=== PATIENT | female | born 1995 | race Hispanic/Latino ===

== ENCOUNTER 2025-03-01 13:52 | Emergency (ER) | payer OTHER, SELFPAY ==
[2025-03-01] MEDS ORDERED: Ibuprofen 800 MG TAB ONE (15:48)
== END 2025-03-01 16:00 | disposition home or self-care (01) ==
LOC: CSHERS 13:52
DX: M25.561 Pain in right knee (principal); W18.40XA Slipping, tripping and stumbling without falling, unspecified, initial encounter; Y99.0 Civilian activity done for income or pay
CPT/HCPCS: 99283